=== PATIENT | female | born 1965 | race Two or more races ===

== ENCOUNTER 2021-01-13 22:05 | Emergency (ER) | payer SELFPAY ==
[~2021-01-13] VITALS: Ht 165.1 cm; Wt 78.0 kg
[2021-01-13 22:16] VITALS: BP 145/87
[2021-01-13 22:59] LABS: Urine Bacteria NONE SEEN /hpf (None Seen); Urine Blood Negative /uL (Negative); Urine WBC 2 /hpf (0 - 5)
== END 2021-01-14 02:55 | disposition left against medical advice (07) ==
LOC: ER 22:06
DX: R32 Unspecified urinary incontinence (principal); R30.0 Dysuria; Z53.21 Procedure and treatment not carried out due to patient leaving prior to being seen by health care provider
CPT/HCPCS: 81001